=== PATIENT | female | born 1970 | race Caucasian/White ===

== ENCOUNTER 2020-09-18 08:02 | Outpatient (REF) | payer OTHER, SELFPAY ==
[2020-09-18 08:38] LABS: MANUAL DIFF FLAG NO
[2020-09-18 08:55] LABS: Basophils Absolute Auto 0.1 X10*3/uL (0.0-0.2); Basophils Percent Auto 1.1 % (0-2); Eosinophils Absolute Auto 0.4 X10*3/uL (0.0-0.4); Eosinophils Percent Auto 4.5 % (0-4); Hematocrit 38.9 % (37-47); Hemoglobin 13.3 g/dl (12.0-16.0); Imm Gran Abs Auto 0.02 X10*3/uL (0.00-0.03); Imm Gran Pct Auto 0.3 % (0.0-0.4); Lymphocytes Absolute Auto 2.8 X10*3/uL (1.2-4.9); Lymphocytes Percent Auto 34.7 % (20-40); Mean Corpuscular HGB Conc 34.2 g/dl (31.0-35.0); Mean Corpuscular Hemoglobin 30.1 pg (27.0-33.0); Monocytes Absolute Auto 0.6 X10*3/uL (0.1-1.2); Monocytes Percent Auto 7.3 % (2-11); Neutrophils Absolute Auto 4.2 X10*3/uL (2.0-8.3); Neutrophils Percent Auto 52.1 % (45-73); Platelet Count 374 X10*3/uL (160-400); Red Blood Count 4.42 X10*6/uL (4.20-5.50); Red Cell Distribution Width 12.2 % (11.0-16.0)
[2020-09-18 09:05] LABS: Alanine Aminotransferase 6 U/L (0-31); Albumin Level 4.3 g/dL (3.5-5.0); Alkaline Phosphatase 59 U/L (39-117); Anion Gap 12 (12-20); Aspartate Amino Transferase 14 U/L (5-31); Bilirubin Total 0.4 mg/dL (0.0-1.0); Blood Urea Nitrogen 8 mg/dL (9-16); Calcium 9.4 mg/dL (8.4-10.2); Carbon Dioxide 24 mmol/L (22-29); Chloride 111 mmol/L (96-108); Cholesterol 161 mg/dL; Estimated Glomerular Filt Rate > 60; Glucose Fasting 97 mg/dL (60-99); HDL Cholesterol 47 mg/dL; LDL Cholesterol Calculated 96 mg/dl; Potassium 4.5 mmol/L (3.3-5.1); Sodium 142 mmol/L (135-145); Total Protein 6.8 g/dL (6.5-8.0); Triglycerides 91 mg/dL
[2020-09-18 09:26] LABS: Vitamin D 25-OH Total 31.8 ng/mL (>30)
== END 2020-09-18 08:03 | disposition home or self-care (01) ==
LOC: HO.LAB 08:02
PROVIDERS: PCP Internal Medicine; Visit Provider Internal Medicine
DX: G43.909 Migraine, unspecified, not intractable, without status migrainosus (principal); K21.9 Gastro-esophageal reflux disease without esophagitis; I25.10 Atherosclerotic heart disease of native coronary artery without angina pectoris; R53.83 Other fatigue
CPT/HCPCS: 36415; 80053; 80061; 82306; 85025

== ENCOUNTER 2023-05-21 09:39 | Outpatient (REF) | payer MEDICAID, SELFPAY ==
--- NOTE | ~2023-05-21 | MM_ITS ---
EXAMINATION: MM SCREENING DIGITAL BREAST TOMOSYNTHESIS, BILATERAL CLINICAL INFORMATION: Screening. Asymptomatic. COMPARISON: Mammography: This study is compared with prior mammogram dating back to 2015. There are no interval examinations. TECHNIQUE: Digital breast tomosynthesis is performed in both the craniocaudal and mediolateral oblique views along with computer-aided detection (CAD). Synthesized 2D images are generated from the tomosynthesis. FINDINGS: There are scattered areas of fibroglandular density (ACR BI-RADS breast composition Category b). There are no significant masses, abnormal calcifications, or other abnormalities. MM/MM tomosynthesis screening BI IMPRESSION: No mammographic evidence of malignancy. ASSESSMENT: BI-RADS BI-RADS 1 - Negative RECOMMENDATION: Routine annual mammography screening. 1 year F/U This examination should not preclude the clinical evaluation of a suspicious palpable abnormality. This patient's information was entered into a reminder system with a target due date for their next mammogram.
== END 2023-05-21 09:40 | disposition home or self-care (01) ==
LOC: HO.MAMMO 09:39
PROVIDERS: PCP Internal Medicine; Visit Provider Internal Medicine
DX: Z12.31 Encounter for screening mammogram for malignant neoplasm of breast (principal)
CPT/HCPCS: 77063; 77067

== ENCOUNTER → 2023-05-21 09:45 | Outpatient (BNV) | payer MEDICAID, SELFPAY | PROVIDERS: PCP Internal Medicine; Visit Provider Radiology Diagnostic Radiology | DX: Z12.31 Encounter for screening mammogram for malignant neoplasm of breast (principal) | CPT/HCPCS: 77063; 77067 ==

== ENCOUNTER 2024-06-16 10:15 | Outpatient (REF) | payer OTHER, SELFPAY | END 2024-06-16 10:16 | disposition home or self-care (01) | LOC: HO.MAMMO 10:15 | PROVIDERS: PCP Internal Medicine; Visit Provider Internal Medicine | DX: Z12.31 Encounter for screening mammogram for malignant neoplasm of breast (principal) | CPT/HCPCS: 77063; 77067 ==

== ENCOUNTER → 2024-06-16 10:30 | Outpatient (BNV) | payer OTHER, SELFPAY | PROVIDERS: PCP Internal Medicine; Visit Provider Internal Medicine | DX: Z12.31 Encounter for screening mammogram for malignant neoplasm of breast (principal) | CPT/HCPCS: 77063; 77067 ==

== ENCOUNTER 2024-08-01 11:04 | Outpatient (REF) | payer OTHER, SELFPAY ==
--- NOTE | ~2024-08-01 | XR_ITS ---
EXAMINATION: XR ANKLE 3 OR MORE VIEWS RIGHT HISTORY: RIGHT ANKLE PAIN. OLD HARDWARE COMPARISON: There are no prior studies available for comparison. FINDINGS: Three views of the right ankle are submitted. Osseous mineralization is normal. The patient is status post internal fixation of the distal fibula with a sideplate and multiple orthopedic screws. An additional screw is seen to the medial malleolus. No acute fracture or dislocation is seen. The joint spaces are preserved. The soft tissues are unremarkable. XR/XR ankle RT min 3V IMPRESSION: Internal fixation of the medial malleolus and distal fibula. No evidence of acute fracture of the right ankle. Electronically signed by: Devante Terrell MD 08/01/2024 03:49 PM EDT
== END 2024-08-01 11:05 | disposition home or self-care (01) ==
LOC: HO.HMGCX 11:04
PROVIDERS: PCP Internal Medicine; Visit Provider Internal Medicine
DX: M25.571 Pain in right ankle and joints of right foot (principal)
CPT/HCPCS: 73610

== ENCOUNTER → 2024-08-01 11:10 | Outpatient (BNV) | payer OTHER, SELFPAY | PROVIDERS: PCP Internal Medicine; Visit Provider Radiology Diagnostic Radiology | DX: M25.571 Pain in right ankle and joints of right foot (principal) | CPT/HCPCS: 73610 ==

== ENCOUNTER 2024-08-28 10:45 | Outpatient (REF) | payer OTHER, SELFPAY ==
--- NOTE | ~2024-08-28 | MM_ITS ---
EXAMINATION: DXA BONE DENSITY AXIAL HISTORY: Z78.0 TECHNIQUE: Q.branch Dual energy absorptiometry (DEXA) of the lumbar spine, total left hip, and femoral neck was performed. COMPARISON: There are no prior studies for comparison. FINDINGS: The bone mineral density of the lumbar spine is 1.021, corresponding to a T-score of -1.3, and a Z-score of -0.6. This is indicative of osteopenia. The bone mineral density of the left total hip is 0.815, corresponding to a T-score of -1.5, and a Z-score of -0.9. This is indicative of osteopenia. The bone mineral density of the left femoral neck is 0.899, corresponding to a T-score of -1.0, and a Z-score of -0.1. This is indicative of normal bone mineral density. FRACTURE RISK: The FRAX index suggests a risk of major osteoporotic fracture of 5.4%, and of hip fracture 0.3%. MM/XR DEXA axial skeleton IMPRESSION: Based on bone mineral density, and according to World Health Organization (WHO) criteria, the diagnosis is consistent with osteopenia. All bone density values are in grams per centimeter squared (g/cm2). Statistically, 68% of repeat scans fall within 1 SD (+/- 0.010 g/cm2 for AP spine L1-L4) and 1 SD (+/- 0.012 g/cm2 for femur total) FRAX is a trademark of the [employer]'s [place] [facility] Metabolic Bone Disease, a World Health Organization (WHO) Collaborating Center. Electronically signed by: Devante Terrell MD 08/28/2024 11:27 AM EDT
== END 2024-08-28 10:46 | disposition home or self-care (01) ==
LOC: HO.MAMMO 10:45
PROVIDERS: Visit Provider Internal Medicine
DX: Z78.0 Asymptomatic menopausal state (principal)
CPT/HCPCS: 77080

== ENCOUNTER → 2024-08-28 11:00 | Outpatient (BNV) | payer OTHER, SELFPAY | PROVIDERS: Visit Provider Radiology Diagnostic Radiology | DX: E28.39 Other primary ovarian failure (principal) | CPT/HCPCS: 77080 ==

== ENCOUNTER 2024-08-29 13:07 | Outpatient (REF) | payer OTHER, SELFPAY ==
[2024-08-29 16:27] LABS: MANUAL DIFF FLAG NO
[2024-08-29 16:35] LABS: Basophils Absolute Auto 0.1 X10*3/uL (0.0-0.2); Basophils Percent Auto 0.9 % (0-2); Eosinophils Absolute Auto 0.4 X10*3/uL (0.0-0.4); Hematocrit 37.6 % (37.0-47.0); Hemoglobin 12.5 g/dl (12.0-16.0); Imm Gran Abs Auto 0.04 X10*3/uL (0.00-0.03); Imm Gran Pct Auto 0.3 % (0.0-0.4); Lymphocytes Percent Auto 39.6 % (20-40); Mean Corpuscular HGB Conc 33.2 g/dl (31.0-35.0); Mean Corpuscular Hemoglobin 29.3 pg (27.0-33.0); Mean Corpuscular Volume 88.1 fL (80.0-98.0); Mean Platelet Volume 9.8 fL (9.4-12.3); Monocytes Absolute Auto 1.2 X10*3/uL (0.1-1.2); Monocytes Percent Auto 9.3 % (2-11); Neutrophils Absolute Auto 5.9 x10*3/uL (2.0-8.3); Neutrophils Percent Auto 46.9 % (45-73); Platelet Count 393 X10*3/uL (160-400); Red Blood Count 4.27 X10*6/uL (4.20-5.50); Red Cell Distribution Width 12.9 % (11.0-16.0); White Blood Count 12.6 X10*3/uL (4.8-10.8)
== END 2024-08-29 13:08 | disposition home or self-care (01) ==
LOC: HO.HMGCLDS 13:07
PROVIDERS: PCP Internal Medicine; Visit Provider Internal Medicine
DX: D72.829 Elevated white blood cell count, unspecified (principal); R53.83 Other fatigue
CPT/HCPCS: 36415; 85025

== ENCOUNTER 2024-09-19 12:50 | Outpatient (AMB) | payer OTHER, SELFPAY ==
--- NOTE | 2024-09-19 13:00 | A.OFFPC_ITS ---
Vital Signs 09/19/24 13:01 Height 5 ft 2 in Weight 155 lb BMI 28.3 BP 132/80 Blood Pressure Location Rt brachial Position Sitting Pulse 86 Pulse Source Pulse Oximeter Pulse Oximetry (%) 98 Oxygen Delivery Method Room Air Intake Visit Reasons: Est Care ~ Transfer Dr. Bishop ~ White cell elevated Allergies No Known Allergies Allergy (Unverified 09/19/24 13:11) Medication List - Last Reconciled 09/19/24 by Esther Cardona PA-C nortriptyline 50 mg PO BEDTIME propranolol 60 mg PO BID rimegepant (Nurtec ODT) 75 mg PO DAILY PRN rizatriptan 10 mg PO DAILY PRN trazodone 100 mg PO BEDTIME triamcinolone acetonide 0.1% appl topical BID Tobacco use date assessed: 09/19/24 Dental Screening Dental Screen Date: 09/19/24 Did you have a dental visit in the last 12 months?: No Did you have a dental problem in the last 6 months where you did not have access to dental care?: No Was dental information given to patient?: Patient declined HPI Est Care ~ Transfer Dr. Bishop ~ White cell elevated HPI Details The patient is a 53-year-old female presenting for a new patient appointment and review of medical history and results. The patient has a history of migraines for which she takes nortriptyline, propranolol, Nurtec, and rizatriptan. She also uses trazodone for sleep disturbances associated with her migraines. The patient reports psoriasis that began a few years ago, which is not responding to the current treatment with triamcinolone cream. The condition is spreading on her arms, causing significant discomfort and skin damage. She has been diagnosed with osteopenia following a bone density scan, indicating a 10% risk of major fractures. The patient is considering treatment with Fosamax to manage this condition. The patient experienced uveitis last year, which was attributed to her psoriasis. This episode resulted in significant visual impairment for two weeks. Social History - Employment: Works third shifts, contri buting to fatigue and sleep disturbances. [facility] Medical History Encounter for screening for malignant neoplasm of colon History of mammogram (~06/16/24) Uveitis Migraine headache Multiple joint pain Elevated WBC count Osteopenia Establishing care with new doctor, encounter for Psoriasis Surgical History History of hernia repair Hx of appendectomy Hx of cholecystectomy H/O section Hx of tonsillectomy Family History Mother Cervical cancer Diabetes Hypertension Mental health disorder Depression Paternal Grandmother Heart attack Brother Heart attack Social History Household Members: Children Housing: House Alcohol intake: never Patient Tobacco Use Status: Former Tobacco user e-Cigarette/Vaping Use: Never Used Substance Use Type: Marijuana service: No Current occupational status: employed Current occupation: [employer] Cognitive needs: No Hearing needs: No Vision needs: No Questionnaire PHQ-9 Over the last 2 weeks, how often have you been bothered by any of the following problems? 1. Little interest or pleasure in doing things: not at all 2. Feeling down, depressed, or hopeless: not at all 3. Trouble falling or staying asleep, or sleeping too much: not at all 4. Feeling tired or having little energy: not at all 5. Poor appetite or overeating: not at all 6. Feeling bad about yourself - or that you are a failure or have let yourself or your family down: not at all 7. Trouble concentrating on things, such as reading the newspaper or watching television: not at all 8. Moving or speaking so slowly that other people could have noticed. Or the opposite - being so fidgety or restless that you have been moving around a lot more than usual: not at all 9. Thoughts that you would be better off or of hurting yourself in some way: not at all Total score: 0 Depression Screening Interpretation: Negative Depression Screening Done: Yes 49071 - PHQ-9 Billing: Yes Source: Developed by Drs. Devante Perry, Susie Abdi, Harshad Navarro and colleagues, with an educational lu from [employer]. Thrive Questionnaire Date Thrive assessed: 09/19/24 I am a: Patient What is your living situation today?: I have a steady place to live Within the past 12 months, did the food you bought not last and you didn't have the money to get more?: Never true Within the past 12 months, did you worry whether your food would run out before you got money to buy more?: Never true Do you have trouble paying for medicines?: No Do you have trouble getting transportation to medical appointments?: No Do you have trouble paying your heating and electricity bill?: No Do you have trouble taking care of your child, family member or friend?: No Do you have trouble with day-to-day activities such as bathing, preparing meals, shopping, managing finances, etc.?: No Are you currently unemployed and looking for a job?: No Are you interested in more education?: No THRIVE Score: 0 AUDIT C Alcohol Use Questionnaire (AUDIT-C) 1. How often do you have a drink containing alcohol?: Never 3. How often do you have six or more drinks on one occasion?: Never Total Score: 0 Score Reviewed/Action Taken: No MYRANDA-7 AMB Questionnaire MYRANDA-7 Date MYRANDA - 7 assessed: 09/19/24 Feeling nervous, anxious, or on edge: 0 = Not at all Not being able to stop or control worryin = Not at all Worrying too much about different things: 0 = Not at all Trouble relaxin = Not at all Being so restless that it is hard to sit still: 0 = Not at all Becoming easily annoyed or irritable: 0 = Not at all Feeling afraid as if something awful might happen: 0 = Not at all Total MYRANDA-7 score (0-4 normal; 5-9 mild; 10-14 moderate; 15-21 severe): 0 Source: Developed by Drs. Devante Perry, Susie Abdi, Harshad Navarro and colleagues, with an educational lu from [employer]. MYRANDA-7 Assessment Billing MYRANDA-7 Assessment Tool: MYRANDA-7 Assessment 81859 Review of Systems Const Details: - Neurological: Reports migraines, sleep disturbances. - Dermatological: Reports psoriasis with spreading lesions on arms. - Musculoskeletal: Denies joint pain, but reports fatigue. - Ophthalmological: Reports past episode of uveitis with significant visual impairment. Physical exam (Primary Care) Vital Signs: Last Vital Signs Pulse 86 09/19/24 13:01 BP 132/80 09/19/24 13:01 Pulse Ox 98 09/19/24 13:01 Oxygen Delivery Method Room Air 09/19/24 13:01 Care Plan Goal for BP management: <140/90 at Goal BMI result Body Mass Index 28.3 BMI Assessment/Plan discussion: High BMI High, discussed plan: lifestyle, weight reduction, dietary, physical activity and alcohol moderation Tobacco/Smoking Status: Tobacco use Status Tobacco use date assessed 09/19/24 09/19/24 13:09 Patient Tobacco Use Status Former Tobacco user 09/19/24 13:09 e-Cigarette/Vaping Use Never Used 09/19/24 13:09 PHQ-9: PHQ-9 Score PHQ-9: Total score 0 09/19/24 13:09 Depression Screening Interpretation: Negative Thrive Assessment: Date of Thrive Assessment Date Thrive assessed 09/19/24 09/19/24 13:09 Const Other: Appearance: Alert. Oriented X3. No acute distress. Head: Normal external exam. Normocephalic. Atraumatic. Eyes: Pupils are equal, round, and reactive to light. Extraocular movements intact. Conjunctiva and sclera normal. Eyelids normal. Ears: External auditory canal normal. Tympanic membranes normal. Throat: Pharynx normal. Uvula midline. Moist mucous membranes. Neck: Normal inspection. Neck supple. Full range of motion. No adenopathy. Thyroid Normal. No meningeal signs. No neck mass noted. Cardiovascular: Normal heart rate and rhythm. Heart sound normal. No murmurs noted. Pulses normal throughout. Respiratory: No respiratory distress. Painless inspiration. Breath sounds normal. No wheezes/rales/rhonchi noted. Chest nontender. No accessory muscle usage noted or decreased air movement noted. Abdomen: Soft and nontender. Bowel sounds normal in all 4 quadrants. No distention noted. No organomegaly noted. No visible injury noted. Back: No costovertebral angle tenderness. Full range of motion noted. Skin: Skin warm and dry. Normal skin color. Normal skin turgor. Psoriasis rash noted to lower extremities no signs of acute infection or drainage or abscesses noted. No additional rashes. No lesions/lacerations noted. Extremities: No lower extremity edema. Extremities exhibit normal range of motion. Extremities nontender. Neuro: Oriented X 3. No motor deficit. No sensory deficit. Reflexes normal. Results Reviewed Results Reviewed: - Labs: Elevated white blood cell count at 12.6 on 08/29/2024. - Imaging: Bone density scan showed osteopenia. - Screening: Mammogram performed on 06/16/24, results not detailed. Coding Level of Care Code New Pt Level 4 (63536) Complex EM visit Add On G2211 Diagnoses Establishing care with new doctor, encounter for Z76.89 Migraine headache G43.909 Psoriasis L40.9 Osteopenia M85.80 Uveitis H20.9 Elevated WBC count D72.829 Additional Codes MYRANDA-7 Assessment Billing - MYRANDA-7 Assessment Tool: MYRANDA-7 Assessment 64035 ([id number]) PHQ-9 - 88377 - PHQ-9 Billing: Yes ([id number]) Assessment & Plan Assessment & Plan (1) Establishing care with new doctor, encounter for: Code(s): Z76.89 - Persons encountering health services in other specified circumstances Category: Medical (2) Migraine headache: Comment: Determined by DEXA scan on 08/28/2024 patient is currently on Fosamax starting on 09/19/2024 Code(s): G43.909 - Migraine, unspecified, not intractable, without status migrainosus Category: Medical Plan: The patient is currently managing migraines with nortriptyline, propranolol, Nurtec, and rizatriptan. Continued monitoring and adjustment of medication may be necessary based on symptom control. Condition is chronic and stable will continue to monitor. (3) Psoriasis: Code(s): L40.9 - Psoriasis, unspecified Category: Medical Plan: The patient reports psoriasis not responding to triamcinolone cream, with lesions spreading on her arms. A stronger topical ointment has been prescribed to improve management. Condition is chronic and stable will continue to monitor. (4) Osteopenia: Code(s): M85.80 - Other specified disorders of bone density and structure, unspecified site Category: Medical Plan: The patient has been diagnosed with osteopenia and is considering treatment with Fosamax. The medication is intended to reduce fracture risk and improve bone density. Patient just found this out today and started on medication will continue to monitor. (5) Uveitis: Code(s): H20.9 - Unspecified iridocyclitis Category: Medical Plan: The patient experienced uveitis attributed to psoriasis, causing significant visual impairment. It has now resolved. Further evaluation for autoimmune disorders is planned to assess underlying causes. (6) Elevated WBC count: Code(s): D72.829 - Elevated white blood cell count, unspecified Category: Medical Plan: Patient with elevated white blood cell count of 12,600. We do not have her prior labs from Dr. Bishop's office as patient is in patient of Dr. Maynard. Will obtain records and continue to monitor although patient denies any acute symptoms fevers, nausea vomiting, chest pain cough shortness of breath abdominal pain dysuria or skin infections or any other symptoms at this time. Will re- evaluate in 3-6 months. Plan Plan Patient was informed and verbally consented to the use of an ambient scribe for clinic note documentation during this visit. 1. Migraine The patient is currently managing migraines with nortriptyline, propranolol, Nurtec, and rizatriptan. Continued monitoring and adjustment of medication may be necessary based on symptom control. 2. Psoriasis The patient reports psoriasis not responding to triamcinolone cream, with lesions spreading on her arms. A stronger topical ointment has been prescribed to improve management. 3. Osteopenia The patient has been diagnosed with osteopenia and is considering treatment with Fulsamax. The medication is intended to reduce fracture risk and improve bone density. 4. Uveitis The patient experienced uveitis attributed to psoriasis, causing significant visual impairment. Further evaluation for autoimmune disorders is planned to assess underlying causes. During the visit, we discussed the management of the patient's migraines with her current medication regimen, including nortriptyline, propranolol, Nurtec, and rizatriptan. We also addressed her psoriasis, prescribing a stronger topical ointment to replace the ineffective triamcinolone cream. For her osteopenia, we considered starting Fulsamax to improve bone density and reduce fracture risk. Additionally, we planned further evaluation for autoimmune disorders due to her history of uveitis and elevated white blood cell count. Orders: Orders DIEGO Reflex Titer and Pattern Today D72.829 - Elevated white blood cell count, unspecified, L40.9 - Psoriasis, unspecified, M25.50 - Pain in unspecified joint, M85.80 - Other specified disorders of bone density and structure, unspecified site Rheumatoid Factor Today D72.829 - Elevated white blood cell count, unspecified, L40.9 - Psoriasis, unspecified, M25.50 - Pain in unspecified joint, M85.80 - Other specified disorders of bone density and structure, unspecified site Medications: New alendronate (Fosamax) 70 mg PO QWEEK 13 tabs 1RF 3 months M85.80 - Other specified disorders of bone density and structure, unspecified site clobetasol 0.05% 1 appl topical BID 60 grams 1RF 2 weeks L40.9 - Psoriasis, unspecified Patient Instructions: - Continue current migraine medications and report any changes in symptoms. - Apply the prescribed topical ointment for psoriasis as directed. - Begin Fulsamax for osteopenia as discussed, and monitor for side effects. - Await further instructions regarding additional blood work and autoimmune evaluation.
[2024-09-19 13:01] VITALS: BP 132/80; PULSE 86; O2SAT 98; BMI 28.3
== END 2024-09-19 13:35 | disposition home or self-care (01) ==
LOC: HO.HMCSH 12:50
PROVIDERS: PCP Internal Medicine; Visit Provider Physician Assistant Medical
DX: Z76.89 Persons encountering health services in other specified circumstances (principal); G43.909 Migraine, unspecified, not intractable, without status migrainosus; L40.9 Psoriasis, unspecified; M85.80 Other specified disorders of bone density and structure, unspecified site; H20.9 Unspecified iridocyclitis; D72.829 Elevated white blood cell count, unspecified

== ENCOUNTER → 2024-09-19 12:50 | Outpatient (BNVA) | payer OTHER, SELFPAY | PROVIDERS: PCP Internal Medicine; Visit Provider Physician Assistant Medical | DX: Z76.89 Persons encountering health services in other specified circumstances (principal); G43.909 Migraine, unspecified, not intractable, without status migrainosus; L40.9 Psoriasis, unspecified; M85.80 Other specified disorders of bone density and structure, unspecified site; H20.9 Unspecified iridocyclitis; D72.829 Elevated white blood cell count, unspecified; Z79.899 Other long term (current) drug therapy; Z13.31 Encounter for screening for depression; Z13.30 Encounter for screening examination for mental health and behavioral disorders, unspecified | CPT/HCPCS: 96127 ==

== ENCOUNTER 2025-01-06 10:39 | Outpatient (AMB) | payer OTHER, SELFPAY ==
--- NOTE | 2025-01-06 10:44 | MHC.OFFVIS ---
Intake Visit Reasons: 6m f/u Allergies No Known Allergies Allergy (Unverified 01/06/25 10:49) Medication List - Last Reconciled 01/06/25 by Naomy Valdez CNP alendronate (Fosamax) 70 mg PO QWEEK 3 months clobetasol 0.05% 1 appl topical BID 2 weeks nortriptyline 50 mg PO BEDTIME 90 days propranolol 60 mg PO BID rizatriptan 10 mg PO DAILY PRN trazodone 100 mg PO BEDTIME HPI Comments Details: She was having more headaches the last few months. She had smaller headaches few times a week that were associated with photophobia, sonophobia, and sometimes nausea. She had bad migraine about once every 2 weeks that lasted few days each time. Rizatriptan as needed did not help at all anymore. She was on probation (for the second time) at work for calling out because of migraines. 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 She was taking trazodone, but still had some trouble falling asleep. Previously, rizatriptan as needed helped some of the time. Used Nurtec in the past with better relief, but was not covered by insurance. Her mother passed around 2023 and began working 3rd shift job, can't sleep. Was getting headaches 2x/week, lasting 1-2 days with photophobia. Has chronic migraines, onset at age 18 for a couple years and subsided, recurring in late 20s and subsiding after a few years again. Around 2016, migraines have recurred and increased in frequency, intensity, and duration. Migraines occur about 2x/week, lasting from 1-4 days. No aura. Triggers include glare and certain smells, perfumes. Headaches are predominately left frontotemporal, steady, constant severe pressure with sharp pains. Occasional nausea and vomiting, photophobia, sonophobia, and intolerance to smells. Her mother and sister have migraines. In the past, she tried small dose of amitriptyline and topiramate 50mg/day without success. Failed triptans and Fioricet. Using OTC Advil, Tylenol, and Tylenol PM to help her sleep. Has trouble initiating and maintaining sleep. Uses cannabis on regular basis for relaxation, does not help headaches. PFSH Medical History Encounter for screening for malignant neoplasm of colon History of mammogram (~06/16/24) Uveitis Migraine headache Multiple joint pain Elevated WBC count Osteopenia Establishing care with new doctor, encounter for Psoriasis Surgical History History of hernia repair Hx of appendectomy Hx of cholecystectomy H/O section Hx of tonsillectomy Family History Mother Cervical cancer Diabetes Hypertension Mental health disorder Depression Paternal Grandmother Heart attack Brother Heart attack Social History Household Members: Children Housing: House Alcohol intake: never Patient Tobacco Use Status: Former Tobacco user e-Cigarette/Vaping Use: Never Used Substance Use Type: Marijuana service: No Current occupational status: employed Current occupation: [employer] Cognitive needs: No Hearing needs: No Vision needs: No Review of Systems Const Denies chills, Denies daytime sleepiness, Reports difficulty sleeping, Reports fatigue, Denies fever(s), Denies frequent falls, Reports headache(s), Denies increased appetite, Denies poor appetite, Denies snoring, Denies weakness, Denies weight gain and Denies weight loss Eyes Denies loss of vision ENT Denies vertigo, Reports dizziness, Reports headache(s) and Denies neck pain Card Denies chest pain at rest, Denies chest pain with activity, Denies syncope, Denies leg edema, Denies palpitations, Denies dyspnea and Denies dyspnea on exertion Resp Denies cough, Denies dyspnea, Denies dyspnea on exertion and Denies snoring GI Denies abdominal pain, Denies constipation, Denies heartburn, Denies diarrhea and Denies nausea Denies urinary frequency, Denies urinary incontinence and Denies urinary urgency Musc Denies abnormal gait, Denies back pain, Denies myalgias, Denies arthralgias, Denies neck pain, Reports numbness and Reports tingling Neuro Denies abnormal gait, Denies vertigo, Reports dizziness, Denies syncope, Denies frequent falls, Reports headache(s), Denies lack of coordination, Denies loss of vision, Reports memory loss, Reports numbness, Denies Other visual disturbances, Denies restless legs, Denies seizure-like activity, Reports tingling, Denies paresthesias, Denies tremor(s) and Denies weakness Psych Reports anxiety, Denies depression, Denies auditory hallucinations, Reports memory loss and Denies visual hallucinations Endo Reports fatigue and Denies palpitations Physical Exam Const Other: General Appearance:? normal, in no acute distress. Heart:? S1, S2 normal, no murmurs. Lungs:? clear anteriorly and posteriorly. Musculoskeletal:? normal. Extremities:? no edema. Psych:? alert, oriented, cognitive function intact, cooperative with exam. Neuro Other: Abnormal Neurological Findings:?none.? Mental Status: alert and oriented X 3. Normal attention, orientation, memory, and affect. Cranial Nerves: Pupils are equal, round, and reactive to light. External ocular muscles are intact. Visual walsh are full, no ptosis. Face is symmetrical, no facial weakness or droop. Facial sensations are normal. Tongue protrudes in midline. Palate elevates symmetrically. Shoulder shrugging is normal Motor Examination: Normal muscle tone, bulk and strength. No atrophy or fasciculations. No drift of the extended upper extremities. DTR 2+. Plantars are flexor. Sensory Exam: Normal light touch, temperature, pinprick, vibration, and joint-position sensations. Rhomberg sign is absent. Coordination: No ataxia. No titubation. Gait Exam: Within normal limits. Cerebellar Signs: [id number] is okay. Extrapyramidal System: No tremor, rigidity with normal facial expressions. No bradykinesia. No bradyphrenia. Normal arm swing and posture. No propulsion or retropulsion. Speech: Normal. Assessment & Plan Assessment & Plan (1) Chronic migraine w/o aura w/o status migrainosus, not intractable: Code(s): G43.709 - Chronic migraine without aura, not intractable, without status migrainosus Category: Medical Plan: Increase propranolol 80mg 1 tablet twice a day. Continue nortriptyline 50mg 1 tablet at bedtime. Rizatriptan was not helping and medication was stopped. Start zolmitriptan 5mg 1 tablet as needed for migraines, use/side effects reviewed. Start ondansetron 4mg 1 tablet as needed for nausea/vomiting, use/side effects reivewed. Tried and failed sumatriptan, rizatriptan 10mg, Fioricet, OTC NSAIDs, Tylenol (2) Insomnia: Code(s): G47.00 - Insomnia, unspecified Category: Medical Qualifiers: Insomnia type: unspecified Qualified Code(s): G47.00 - Insomnia, unspecified Plan Meds tried: propranolol, nortriptyline, topiramate, amitriptyline, sumatriptan, rizatriptan 10mg, Fioricet, OTC NSAIDs, Tylenol Medications: New propranolol 80 mg PO BID 180 tabs 1RF 90 days zolmitriptan take 1 tab at onset of headache; if no relief, may repeat 1 tab after at least 2 hrs; max = 2 tabs/24 hrs PO 10 tabs 5RF 30 days ondansetron 4 mg PO DAILY PRN 10 tabs 5RF nausea and vomiting 30 days Coding Level of Care Code Est Pt Level 4 (35248) Diagnoses Chronic migraine w/o aura w/o status migrainosus, not intractable G43.709 Insomnia, unspecified type G47.00 Insomnia type: unspecified
== END 2025-01-06 11:11 | disposition home or self-care (01) ==
LOC: HO.HSM 10:40
PROVIDERS: PCP Internal Medicine; Referring Provider Internal Medicine; Visit Provider Registered Nurse
DX: G43.709 Chronic migraine without aura, not intractable, without status migrainosus (principal); G47.00 Insomnia, unspecified
CPT/HCPCS: 99214